=== PATIENT | male | born 2000 | race Caucasian/White ===

== ENCOUNTER 2022-11-30 21:46 | Emergency (ER) | payer BC, SELFPAY ==
--- NOTE | ~2022-11-30 | CT_ITS ---
EXAMINATION: CT brain wo con DATE: 11/30/2022 22:35 INDICATION: Altered mental status. TECHNIQUE: Computed tomography (CT) of the head was performed without intravenous contrast. The mA wa s adjusted according to patient size. Iterative reconstruction technique was employed. The dose-lengt h product was 681.00 mGy-cm. COMPARISON: None FINDINGS: There is no intracranial hemorrhage, acute infarction, or abnormal intracranial mass lesion . The ventricles are normal in size. The orbits are normal. There is mild mucosal thickening in the p aranasal sinuses. There is a trace right mastoid effusion. IMPRESSION: 1. Normal brain. Reviewed, dictated and finalized at location E. IMPRESSION: 1. Normal brain.
--- NOTE | ~2022-11-30 | XR_ITS ---
EXAMINATION: XR chest 1V DATE: 11/30/2022 22:40 INDICATION: Altered mental status. TECHNIQUE: A single frontal view of the chest was obtained. COMPARISON: Chest 2 views 04/15/2007 FINDINGS: There is no pneumonia, pleural effusion, or pneumothorax. The heart size is normal. IMPRESSION: 1. No acute cardiopulmonary disease. Reviewed, dictated and finalized at location E.
[2022-11-30 21:47] VITALS: BP 143/70; PULSE 128; RESP 22; TEMP 36.6; O2SAT 97
--- NOTE | 2022-11-30 22:03 | ECG_ITS ---
Measurements Intervals [place] Rate: 116 P: 40 MD: 174 QRS: 50 QRSD: 88 T: 57 QT: 333 QTc: 463 Interpretive Statements SINUS TACHYCARDIA BASELINE WANDER- II, III ABNORMAL ECG NO PREVIOUS ECG AVAILABLE FOR COMPARISON Electronically Signed On 12-01-2022 6:08:30 CDT by Rogelio Kang D.O.
[2022-11-30 22:12] VITALS: RESP 24
[2022-11-30 22:14] VITALS: PULSE 118
[2022-11-30] MEDS: LORazepam INJ (*CRX) 2 MG/ML VIAL (22:16)
[2022-11-30] MEDS: HALOPERIDOL LACTATE 5 MG/ML VIAL IM (22:16)
[2022-11-30] MEDS: SODIUM CHLORIDE 0.9% IV 3,000 ML 999 ML IV CONT (22:19)
[2022-11-30 22:24] LABS: Glucose Point of Care 108 mg/dl (65-105)
[2022-11-30 22:25] LABS: Basophils Percent Auto 0.3 % (0.2-1.2); Eosinophils Absolute Auto 0.1 K/mm3 (0-0.3); Eosinophils Percent Auto 0.4 % (0-4.4); Hematocrit 52.4 % (42.0-52.0); Hemoglobin 17.7 g/dL (14.0-18.0); Immature Granulocyte Absolute 0.07 K/mm3 (0.00-0.031); Immature Granulocyte Percent A 0.5 % (0-0.5); Lymphocytes Absolute Auto 2.43 K/mm3 (0.9-3.2); Lymphocytes Percent Auto 17.6 % (18.3-44.2); Mean Corpuscular HGB Conc 33.8 g/dl (32-36); Mean Corpuscular Hemoglobin 30.2 pg (26-34); Mean Corpuscular Volume 89.3 fl (80-100); Mean Platelet Volume 8.9 fl (7.4-10.4); Monocytes Absolute Auto 0.7 K/mm3 (0.1-0.6); Monocytes Percent Auto 4.8 % (2.6-8.5); Neutrophils Absolute Auto 10.6 K/mm3 (1.3-6.7); Neutrophils Percent Auto 76.4 % (45.5-73.1); Platelet Count Result 407 k/mm3 (150-375); Red Blood Count 5.87 M/mm3 (4.6-6.20); Red Cell Distribution Width 12.9 % (11.5-14.5); White Blood Count 13.8 K/mm3 (4.5-10.0)
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
--- NOTE | 2022-11-30 22:35 | PC.NURSE ---
Called poison control and spoke to [place].
[2022-11-30 22:36] LABS: Appearance Urine Clear (Clear); Bilirubin Urine Negative (Negative); Blood Urine Negative (Negative); Color Urine Yellow (Yellow); Glucose Urine UA Negative (Negative); Ketones Urine Negative (Negative); Leukocyte Esterase Ur Negative LEU/UL (Negative); Nitrate Urine Negative (Negative); Protein Urine Negative (Negative); Specific Grav Ur 1.003 (1.001-1.035); Urobilinogen Urine 0.2 mg/dL (<2.0); pH Urine 6.5 (5.0-9.0)
[2022-11-30 22:39] LABS: Prothrombin Time 14.1 Seconds (11.1-14.7)
[2022-11-30 22:40] LABS: Acetaminophen 31 ug/mL (10-30); Salicylate < 1.0 mg/dL (2-20)
[2022-11-30 22:40] LABS: Partial Thromboplastin Time 23.1 SECONDS (22.3-36.8)
[2022-11-30 22:41] LABS: Lipase 217 U/L (23-300); Magnesium 2.2 mg/dL (1.6-2.3); Phosphorus 4.7 mg/dL (2.5-4.5)
[2022-11-30 22:41] LABS: Alanine Aminotransferase 36 U/L (6-50); Albumin Level 4.9 g/dL (3.5-5.1); Alkaline Phosphatase 109 U/L (38-126); Anion Gap 18 mmol/L (8-16); Aspartate Amino Transferase 28 U/L (17-59); Bilirubin,Total 0.5 mg/dL (0.2-1.3); Blood Urea Nitrogen 7 mg/dL (9-20); Calcium 8.6 mg/dL (8.4-10.2); Carbon Dioxide 19 mmol/L (22-30); Chloride 106 mmol/L (98-107); Creatine Kinase 97 U/L (55-170); Estimated Glomerular Filt Rate > 60; Ethanol 122 mg/dL (<10); Glucose 119 mg/dL (65-110); Potassium 3.5 mmol/L (3.4-5.0); Sodium 143 mmol/L (137-145)
[2022-11-30 22:43] LABS: Add Urine Microscopic? NO
[2022-11-30] MEDS: KETAMINE HCL (*CRX) 500 MG/10 ML VIAL 400 MG IV PUSH (22:44)
[2022-11-30 22:45] LABS: Lactic Acid Reflex 5.4 mmol/L (0.7-2.0)
[2022-11-30 22:52] LABS: Amphetamine Screen Urine Negative (Negative); Barbiturate Screen Urine Negative (Negative); Benzodiazepines Screen Urine Negative (Negative); Cannabinoid Screen Urine Negative (Negative); Cocaine Screen Urine Negative (Negative); Methadone Screen Urine Negative (Negative); Opiate Screen Urine Negative (Negative); Phencyclidine Screen Urine Negative (Negative)
[2022-11-30 22:53] LABS: NT Pro B Type Natriuretic Pept < 20 pg/mL (19.9-100); Troponin I < 0.012 ng/mL (0.000-0.034)
[2022-11-30 23:11] VITALS: BP 90/46; PULSE 95; RESP 18; O2SAT 100
[2022-11-30 23:18] LABS: Thyroid Stimulating Hormone Reflex 0.903 uIU/mL (0.465-4.68)
--- NOTE | 2022-11-30 23:20 | PC.NURSE ---
Patient is currently sleeping. Notified Dr. Palencia who advised to remove patient from violent restraints. All restraints were removed with no issues and patient is still sleeping.
[2022-12-01] VITALS (17 sets, daily range): BP systolic 110–139; BP diastolic 75–102; PULSE 77–100; RESP 7–20; O2SAT 98–100
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
--- NOTE | 2022-12-01 00:51 | PC.NURSE ---
assumed care of pt at this time.
[2022-12-01 01:21] LABS: Reflex Lactic Acid Yes or No Add Lactic
[2022-12-01 01:32] LABS: Lactic Acid Reflex 1.8 mmol/L (0.7-2.0)
[2022-12-01 01:45] LABS: Troponin I < 0.012 ng/mL (0.000-0.034)
[2022-12-01 03:03] LABS: Acetaminophen 18 ug/mL (10-30)
[2022-12-01 04:10] LABS: Ethanol 20 mg/dL (<10)
--- NOTE | 2022-12-01 05:20 | PC.NURSE ---
Pt is still too drowsy to call crisis at this time.
--- NOTE | 2022-12-01 07:00 | PC.NURSE ---
Nurse report given to Sharri STONER
--- NOTE | 2022-12-01 07:15 | PC.NURSE ---
0715: Pt calm and cooperative, pt only A&Ox1 at this time, unable to assess [place] Scale, mom at bedside. Sitter no longer needed at this time
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
--- NOTE | 2022-12-01 10:21 | PC.NURSE ---
Pt now alert and oriented x4. Pt ambulated to bathroom with assistance. Unsteady gait. Crisis called to evaluate
--- NOTE | 2022-12-01 10:25 | PC.NURSE ---
poison control called to get an update on pt. After update they state they are closing his case
--- NOTE | 2022-12-01 10:42 | PC.NURSE ---
Crisis here and evaluating pt at this time
--- NOTE | 2022-12-01 10:50 | PC.NURSE ---
Crisis states pt is unable to hold a conversation with them. They recommend pt be transferred to psych facility.
[2022-12-01 11:37] LABS: SARS-CoV-2 RNA PCR Negative (Negative)
--- NOTE | 2022-12-01 12:25 | PC.NURSE ---
Gracia from [facility] called to get some additional information on patient. States she will call back after reviewing chart with
--- NOTE | 2022-12-01 13:04 | PC.NURSE ---
[facility] called and requested to speak with patient.
== END 2022-12-01 18:28 ==
LOC: ANHED 22:07
PROVIDERS: Emergency Medicine; Emergency Provider Emergency Medicine; PCP Family Medicine
DX: T51.0X2A Toxic effect of ethanol, intentional self-harm, initial encounter (principal); T38.892A Poisoning by other hormones and synthetic substitutes, intentional self-harm, initial encounter; T48.5X2A Poisoning by other anti-common-cold drugs, intentional self-harm, initial encounter; Z20.822 Contact with and (suspected) exposure to COVID-19; F90.9 Attention-deficit hyperactivity disorder, unspecified type; F32.A Depression, unspecified; R00.0 Tachycardia, unspecified
CPT/HCPCS: 36415; 70450; 71045; 80053; 80307; 81003; 82550; 82948; 83605; 83690; 83735; 83880; 84100; 84443; 84484; 85025; 85610; 85730; 87635; 93005; 96361; 96372; 96374; 99285; J1630; J2060; J7030; U0005

== ENCOUNTER 2023-03-30 15:22 | Emergency (ER) | payer BC, SELFPAY ==
[2023-03-30] VITALS (11 sets, daily range): BP systolic 126–152; BP diastolic 68–104; PULSE 96–124; RESP 15–32; TEMP 36.6–36.7; O2SAT 95–100
--- NOTE | ~2023-03-30 | XR_ITS ---
EXAM: XR shoulder LT min 2V DATE: 03/30/2023 17:43 HISTORY: post reduction shoulder . COMPARISON: Same date at 4:02 PM. FINDINGS/IMPRESSION: Successful interval left glenohumeral joint reduction. Redemonstration of the co mminuted, displaced fracture of the posterior aspect of the left humeral head, likely involving a por tion of the greater tuberosity. Reviewed, dictated and finalized at location K.
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
--- NOTE | ~2023-03-30 | XR_ITS ---
EXAM: XR shoulder LT min 2V, XR humerus LT DATE: 03/30/2023 16:26 HISTORY: Left shoulder pain, swelling. Possible fall. . COMPARISON: None available. FINDINGS: Normal mineralization. Anterior left glenohumeral dislocation. Large osseous fragments, li janelle from the posterior aspect of the humeral head, adjacent to the glenoid. The glenoid appears to b e intact. No lytic or blastic lesion. AC joint maintained. No erosion or periosteal change. Soft tiss ue swelling and deformity about the shoulder. IMPRESSION: Anterior left glenohumeral dislocation. Comminuted fracture of the posterior aspect of le ft humeral head with significant distraction of the fracture fragments. Reviewed, dictated and finalized at location K. IMPRESSION: Anterior left glenohumeral dislocation. Comminuted fracture of the posterior aspect of left humeral head with significant distraction of the fract ure fragments.
--- NOTE | ~2023-03-30 | XR_ITS ---
EXAM: XR shoulder RT min 2V DATE: 03/30/2023 16:25 HISTORY: Right shoulder pain, swelling. Possible fall . COMPARISON: None available. FINDINGS: Normal mineralization. Anterior right shoulder dislocation. Cortical irregularity along th e posterior lateral aspect of the humeral head. No lytic or blastic lesion. AC joint is maintained. N o erosion or periosteal change. Soft tissues within normal limits. IMPRESSION: Anterior right clinical humeral dislocation with Hill-Sachs deformity. Reviewed, dictated and finalized at location K. IMPRESSION: Anterior right clinical humeral dislocation with Hill-Sachs deformi ty.
--- NOTE | ~2023-03-30 | XR_ITS ---
EXAMINATION: XR chest 1V Exam Date/Time: 03/30/2023 16:00 CDT HISTORY: pain Comparison: 11/30/2022; X-rays of the bilateral shoulders and left humerus, same date. RESULT: Lines, tubes, and devices: None. Lungs and pleura: Clear. Cardiomediastinal silhouette: Stable. Other: Comminuted left humeral head fracture. Hill-Sachs deformity of the right humerus. Bilateral a nterior shoulder dislocations. No acute upper abdominal finding. IMPRESSION: No acute cardiopulmonary process. Bilateral anterior shoulder dislocations and humeral head fractures. Reviewed, dictated and finalized at location K.
--- NOTE | 2023-03-30 15:43 | ECG_ITS ---
Measurements Intervals [place] Rate: 105 P: 43 FL: 112 QRS: 28 QRSD: 77 T: 47 QT: 315 QTc: 416 Interpretive Statements SINUS TACHYCARDIA WITH SHORT FL INTERVAL MINIMAL Q WAVES- INFERIOR LEADS BORDERLINE ECG COMPARED TO ECG 11/30/2022 22:17:15 HEART RATE HAS DECREASED Electronically Signed On 03-30-2023 16:36:16 CDT by Rogelio Kang D.O.
[2023-03-30] MEDS: LACTATED RINGERS 1,000 ML 999 ML IV CONT ×2 (15:58→17:08)
[2023-03-30 16:01] LABS: Basophils Percent Auto 0.2 % (0.2-1.2); Eosinophils Percent Auto 0.1 % (0-4.4); Hematocrit 49.3 % (42.0-52.0); Hemoglobin 16.9 g/dL (14.0-18.0); Immature Granulocyte Absolute 0.09 K/mm3 (0.00-0.031); Immature Granulocyte Percent A 0.5 % (0-0.5); Lymphocytes Absolute Auto 1.43 K/mm3 (0.9-3.2); Lymphocytes Percent Auto 7.9 % (18.3-44.2); Mean Corpuscular HGB Conc 34.3 g/dl (32-36); Mean Corpuscular Hemoglobin 31.4 pg (26-34); Mean Corpuscular Volume 91.6 fl (80-100); Mean Platelet Volume 9.1 fl (7.4-10.4); Monocytes Absolute Auto 1.6 K/mm3 (0.1-0.6); Neutrophils Absolute Auto 14.9 K/mm3 (1.3-6.7); Neutrophils Percent Auto 82.3 % (45.5-73.1); Platelet Count Result 385 k/mm3 (150-375); Red Blood Count 5.38 M/mm3 (4.6-6.20); Red Cell Distribution Width 13.5 % (11.5-14.5); White Blood Count 18.1 K/mm3 (4.5-10.0)
[2023-03-30 16:10] LABS: Ethanol < 10 mg/dL (<10)
[2023-03-30 16:12] LABS: INR 1.1; Lactic Acid Reflex 2.4 mmol/L (0.7-2.0); Prothrombin Time 14.3 Seconds (11.1-14.7)
[2023-03-30 16:13] LABS: Alanine Aminotransferase 71 U/L (6-50); Albumin Level 4.9 g/dL (3.5-5.1); Alkaline Phosphatase 101 U/L (38-126); Anion Gap 15 mmol/L (8-16); Aspartate Amino Transferase 259 U/L (17-59); Blood Urea Nitrogen 27 mg/dL (9-20); Calcium 9.8 mg/dL (8.4-10.2); Carbon Dioxide 25 mmol/L (22-30); Chloride 105 mmol/L (98-107); Estimated CRCL calculation 88 ml/min; Estimated Glomerular Filt Rate > 60; Glucose 140 mg/dL (65-110); Lipase 45 U/L (23-300); Magnesium 2.4 mg/dL (1.6-2.3); Potassium 4.5 mmol/L (3.4-5.0); Sodium 145 mmol/L (137-145)
[2023-03-30 16:48] LABS: Creatine Kinase 15250 U/L (55-170)
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
--- NOTE | 2023-03-30 17:15 | PC.NURSE ---
Procedure Note: Pre-Assessment 1714 1715 First Dose Propofol 50mcg given by Dr. Beck 1717 50mcg propofol given by Dr. Beck 1719 40mcg propofol given by Dr. Beck Right shoulder in place, left in and then back out of place per x-ray at 1722 1729 50mcg propofol given by Dr. Beck 1731 [address] Beck [address] Beck 1739 Post X-ray and patient back at baseline AxO 4 1800 EMS arrived to take patient to [facility] ED, report given to Aide STONER
[2023-03-30 18:59] LABS: Reflex Lactic Acid Yes or No Add Lactic
== END 2023-03-30 18:15 | disposition short-term general hospital (02) ==
PROVIDERS: Emergency Provider General Practice; PCP Family Medicine
DX: S06.6XAA Traumatic subarachnoid hemorrhage with loss of consciousness status unknown, initial encounter (principal); S42.292A Other displaced fracture of upper end of left humerus, initial encounter for closed fracture; S42.291A Other displaced fracture of upper end of right humerus, initial encounter for closed fracture; M62.82 Rhabdomyolysis; F90.9 Attention-deficit hyperactivity disorder, unspecified type; F32.A Depression, unspecified; X58.XXXA Exposure to other specified factors, initial encounter
CPT/HCPCS: 23650; 36415; 70450; 71045; 73030; 73060; 80053; 80307; 82550; 83605; 83690; 83735; 85025; 85610; 85730; 93005; 99285; J2704; J7030; J7120

== ENCOUNTER 2023-08-19 11:28 | Outpatient (CLI) | payer BC, SELFPAY ==
[2023-08-19 11:54] LABS: Basophils Percent Auto 0.5 % (0.2-1.2); Eosinophils Absolute Auto 0.1 K/mm3 (0-0.3); Eosinophils Percent Auto 1.6 % (0-4.4); Hematocrit 50.1 % (42.0-52.0); Hemoglobin 17.1 g/dL (14.0-18.0); Immature Granulocyte Absolute 0.04 K/mm3 (0.00-0.031); Immature Granulocyte Percent A 0.5 % (0-0.5); Lymphocytes Absolute Auto 2.52 K/mm3 (0.9-3.2); Mean Corpuscular HGB Conc 34.1 g/dl (32-36); Mean Corpuscular Hemoglobin 29.7 pg (26-34); Mean Corpuscular Volume 87.1 fl (80-100); Mean Platelet Volume 8.9 fl (7.4-10.4); Monocytes Absolute Auto 0.8 K/mm3 (0.1-0.6); Monocytes Percent Auto 9.8 % (2.6-8.5); Neutrophils Absolute Auto 4.2 K/mm3 (1.3-6.7); Neutrophils Percent Auto 54.6 % (45.5-73.1); Platelet Count Result 401 k/mm3 (150-375); Red Blood Count 5.75 M/mm3 (4.6-6.20); Red Cell Distribution Width 13.4 % (11.5-14.5); White Blood Count 7.6 K/mm3 (4.5-10.0)
[2023-08-19 13:55] LABS: Alanine Aminotransferase 32 U/L (6-50); Albumin Level 4.4 g/dL (3.5-5.1); Alkaline Phosphatase 88 U/L (38-126); Anion Gap 8 mmol/L (8-16); Aspartate Amino Transferase 22 U/L (17-59); Bilirubin,Total 0.6 mg/dL (0.2-1.3); Blood Urea Nitrogen 12 mg/dL (9-20); Calcium 9.6 mg/dL (8.4-10.2); Carbon Dioxide 28 mmol/L (22-30); Chloride 104 mmol/L (98-107); Estimated Glomerular Filt Rate > 60; Glucose 97 mg/dL (65-110); Potassium 4.3 mmol/L (3.4-5.0); Sodium 140 mmol/L (137-145)
[2023-08-19 13:56] LABS: Iron 113 ug/dL (49-181)
[2023-08-19 14:04] LABS: Transferrin 320 mg/dL (206-381)
[2023-08-19 14:05] LABS: Percent Iron Saturation 30 % (20-50)
[2023-08-19 14:38] LABS: Erythrocyte Sedimentation Rate 3 mm/hr (0-20)
[2023-08-21 21:18] LABS: Erythropoietin (EPO) 8.1 mIU/mL (2.6-18.5)
[2023-08-26 13:46] LABS: Block/Specimen ID Not Given; CALR Exon 9 Mutation Not Detected (Not Detected); CSF3R Exon 14/17 Mutation Not Detected (Not Detected); JAK2 Exon 12 Mutation Not Detected (Not Detected); JAK2 V617F Mutation Not Detected (Not Detected); MPL Exon 10 Mutation Not Detected (Not Detected); Specimen Source Blood
== END 2023-08-19 11:29 | disposition home or self-care (01) ==
LOC: ANHLAB 11:30
PROVIDERS: Nurse Practitioner Family; PCP Family Medicine; Visit Provider Internal Medicine Hematology & Oncology
DX: D45 Polycythemia vera (principal); E83.110 Hereditary hemochromatosis; R71.8 Other abnormality of red blood cells
CPT/HCPCS: 36415; 80053; 81219; 81256; 81270; 81279; 81339; 81479; 82668; 82728; 83540; 83550; 84466; 85025; 85652